=== PATIENT | female | born 1960 | race Caucasian/White ===

== ENCOUNTER → 2018-05-24 | Day surgery (SDC) | payer BC ==
--- NOTE | 2018-05-24 14:00 | SPC ---
Ultrasound-guidedleftupper extremity PICC placement: 05/24/2018 HISTORY: Foot infection in need of IV antibiotics FINDINGS: Informed consent obtained prior to the procedure. Left antecubital fossa prepped and draped in normal sterile fashion. Skin overlying theleft basilicvein anesthetized with 1% buffered lidocaine. With direct sonographic g uidance, vascular access is obtained via the left basilicvein and an 0.018in wire was advanced to the cavoatrial junction. Intravascular length is calculated at 42 cm and of the PICC is cut according ly. Needle is removed and replaced with a peel-away sheath. The PICC was advanced over the wire. Wire and peel-away sheath were removed. The tip of the catheter overlies the cavoatrial junction. The port flushes well and the catheter is ready for use. Exposure data: 0.2 minutes of fluoroscopic time 473 mGy per centimeter squared IMPRESSION: Successful ultrasound guided placement of a left single-lumen upper extremity PICC with s onographic and fluoroscopic guidance.
== END ==
LOC: SPEC 12:06
PROVIDERS: ATTEND Internal Medicine Infectious Disease
PROC: 05HY33Z Insertion of Infusion Device into Upper Vein, Percutaneous Approach (ICD-10-PCS; principal; 2018-05-24)
DX: M86.072 Acute hematogenous osteomyelitis, left ankle and foot (principal)
CPT/HCPCS: 36569; C1751

== ENCOUNTER 2020-12-08 10:48 | Outpatient (CLI) | payer BC | END 2020-12-08 10:49 | disposition home or self-care (01) | LOC: BICMAMMO 10:48 | PROVIDERS: ATTEND Internal Medicine Rheumatology | DX: M81.0 Age-related osteoporosis without current pathological fracture (principal); M85.88 Other specified disorders of bone density and structure, other site | CPT/HCPCS: 77080 ==

== ENCOUNTER 2024-12-13 11:21 | Outpatient (CLI) | payer BC | END 2024-12-13 11:22 | disposition home or self-care (01) | LOC: SCSBT 11:21 | PROVIDERS: ATTEND Internal Medicine | DX: Z13.820 Encounter for screening for osteoporosis (principal); M81.0 Age-related osteoporosis without current pathological fracture; M85.88 Other specified disorders of bone density and structure, other site | CPT/HCPCS: 77080 ==